=== PATIENT | female | born 1955 | race Caucasian/White ===

== ENCOUNTER → 2022-06-11 | Outpatient (CLI) | payer OTHER ==
[~2022-06-11] MED LIST: BUSP1TAB PO; HYDR-3363 PO; PAXI10TA12 PO
== END ==
LOC: M LABSMTC 11:36
PROVIDERS: ATTEND Anesthesiology
DX: Z01.818 Encounter for other preprocedural examination (principal); Z11.52 Encounter for screening for COVID-19

== ENCOUNTER 2022-06-14 07:16 | Day surgery (SDC) | payer OTHER ==
[~2022-06-14] VITALS: Ht 162.6 cm; Wt 63.9 kg
[~2022-06-14 07:16] MED LIST changes: +NS 1,000 ML IV ONE
[2022-06-14] MEDS ORDERED: LIDOCAINE 2% MDV 20ML VIAL As Ordered ONE (09:01)
[2022-06-14] MEDS ORDERED: propofoL 200 MG/20 ML VIAL As Ordered ONE (09:01)
== END 2022-06-14 09:25 | disposition home or self-care (01) ==
LOC: M OPP 07:16 → EDUNIT# 09:00 → M OPP 09:25
PROVIDERS: ATTEND Surgery
DX: Z12.11 Encounter for screening for malignant neoplasm of colon (principal); K63.5 Polyp of colon; K57.30 Diverticulosis of large intestine without perforation or abscess without bleeding; K31.89 Other diseases of stomach and duodenum; K30 Functional dyspepsia; F17.210 Nicotine dependence, cigarettes, uncomplicated; Z79.899 Other long term (current) drug therapy; Z88.8 Allergy status to other drugs, medicaments and biological substances

== ENCOUNTER → 2022-07-22 | Outpatient (CLI) | payer OTHER ==
[~2022-07-22] MED LIST changes: -NS 1,000 ML IV ONE
== END ==
LOC: M RAD 08:18
PROVIDERS: ATTEND Orthopaedic Surgery
DX: S83.251A Bucket-handle tear of lateral meniscus, current injury, right knee, initial encounter (principal); X58.XXXA Exposure to other specified factors, initial encounter; Y92.9 Unspecified place or not applicable

== ENCOUNTER → 2023-12-11 | Outpatient (REF) | payer MEDICARE ==
[~2023-12-11] MED LIST changes: -PAXI10TA12 PO; +PAXI10TA13 PO
== END ==
LOC: M LAB REF 12-10 14:58
PROVIDERS: ATTEND Physician Assistant
DX: Z12.4 Encounter for screening for malignant neoplasm of cervix (principal)

== ENCOUNTER → 2025-01-16 | Outpatient (REF) | LOC: M CFLAB 12:45 | DX: N39.0 Urinary tract infection, site not specified (principal) ==

== ENCOUNTER → 2025-03-26 | Outpatient (REF) | payer MEDICARE | LOC: M CFLAB 13:12 | DX: N39.0 Urinary tract infection, site not specified (principal) ==